=== PATIENT | female | born 1980 | race Caucasian/White ===

== ENCOUNTER 2017-02-19 05:31 | Day surgery (SDC) | payer OTHER ==
[~2017-02-19] VITALS: Ht 157.5 cm; Wt 89.0 kg
[~2017-02-19 05:31] MED LIST: DAILY VITE1 EAC1 PO
[2017-02-19 06:04] VITALS: BP 138/67
[2017-02-19] MEDS ORDERED: COLACE100 MG PO (08:52)
[2017-02-19] MEDS ORDERED: PERCOCET 5/31 TABLET PO (08:52)
[2017-02-19 10:39] VITALS: BP 120/70
[2017-02-19 11:11] VITALS: BP 124/66
== END 2017-02-19 12:11 | disposition home or self-care (01) ==
LOC: SDC 05:31
PROC: 0WUF4KZ Supplement Abdominal Wall with Nonautologous Tissue Substitute, Percutaneous Endoscopic Approach (ICD-10-PCS; principal; 2017-02-19)
DX: K42.9 Umbilical hernia without obstruction or gangrene (principal); E66.9 Obesity, unspecified; Z68.35 Body mass index [BMI] 35.0-35.9, adult; F32.9 Major depressive disorder, single episode, unspecified; Z82.49 Family history of ischemic heart disease and other diseases of the circulatory system; Z80.49 Family history of malignant neoplasm of other genital organs
CPT/HCPCS: C1781; J0131; J0690; J1100; J1170; J1885; J2250; J2405; J2710; J2765; J3010